=== PATIENT | male | born 1965 | race Caucasian/White ===

== ENCOUNTER 2024-05-02 19:54 | Inpatient (IN) | payer BC, SELFPAY ==
[2024-05-02 19:55] VITALS: BP 168/112; PULSE 130; RESP 16; TEMP 37.1; O2SAT 95; BMI 35.2
--- NOTE | 2024-05-02 20:12 | EDS_ITS ---
HPI History of Present Illness Chief Complaint: ETOH Intox PFSH PFSH Medical History GI bleed Alcohol abuse Home Medications ?Medication ?Instructions ?Recorded ?Last Taken ?Type ferrous sulfate 325 mg (65 mg 325 mg PO BID iron 05/02/24 Unknown History iron) tablet (Iron (ferrous sulfate)) Allergy/AdvReac Type Severity Reaction Status Date / Time No Known Allergies Allergy Verified 05/02/24 19:55 Social History Smoking Status: Never smoker EXAM Physical Exam Const Vital Signs: 05/02/24 19:55 05/02/24 21:55 Temperature 98.7 F Temperature Source Oral Pulse Rate 130 H 103 H Respiratory Rate 16 20 H Blood Pressure 168/112 H 149/95 H Blood Pressure Mean 130 113 Pulse Ox 95 97 Oxygen Delivery Method Room Air Room Air MDM MDM MDM Narrative Medical decision making narrative: HISTORY OF PRESENT ILLNESS: 59-year-old male presents requesting alcohol detoxification. Notes he drinks daily. Also uses marijuana. Last drink was at 3 PM. Notes he drinks approximately 1/5 of vodka daily. Illness for several years. Denies vomiting, abdominal pain, bloody stools. REVIEW OF SYSTEMS: Pertinent positives: Shaky Pertinent negatives: Abdominal pain, vomiting, headache PHYSICAL EXAM: Nursing triage notes reviewed, Vital signs reviewed Constitutional: please see mdm HENT: MMM Eyes: Pupils equal round and reactive to light, Extraocular muscles intact Neck: No stridor, no JVD, full neck ROM Lungs: Clear to auscultation, No wheezing or rales. No increased work of breathing, no conversational dyspnea, no accessory muscle use, no nasal flaring. No respiratory distress noted Heart: Regular rate and rhythm, No murmurs, No rubs and No gallops, 2+ distal pulses (radial, femoral, posterior tibial) in all extremities Abdomen: Soft, there is no tenderness, rigidity, rebound or guarding, no obvious peritoneal signs, no palpable pulsatile abdominal masses, no auscultated abdominal bruit : No CVAT Extremities: No edema Neuro: No new focal neurological deficits, cranial nerves II through XII intact, 5/5 strength in all present extremities. Intact sensation to light touch in all present extremities, 2+ reflexes bilateral patella tendons. Skin: No rash or lesions noted MEDICAL DECISION MAKING: Chief Complaint: Alcohol withdrawal External records reviewed: No recent ED visits Factors affecting care: History of alcohol abuse Social determinants of health: Alcohol abuse History obtained from others: Patient's friend Consults: internal medicine MDM Narrative: The patient was initially tachycardic rate 130, hypertensive with a blood pressure 168/112 Patient's vital sign abnormalities likely secondary to early alcohol withdrawal. Initially resuscitated patient with IV Ativan, 9 7.2 mg oral phenobarbital ALL IMAGES (IF OBTAINED) HAVE BEEN PERSONALLY REVIEWED AND INTERPRETED BY MYSELF. CBC without leukocytosis, severe anemia, no thrombocytopenia. BMP without evidence of significant electrolyte abnormalities, no anion gap, no acute kidney injury. Lipase is wnl indicating no pancreatic inflammation. Urine drug screen was positive for cannabinoids Serum alcohol grossly elevated consistent with history of alcohol abuse The patient was medically clear for detoxification admission Upon reevaluation vital signs improved blood pressure 144/85, heart rate was 95. Patient appropriate for floor admit. Discussed with hospitalist accepted the patient's case. The patient and/or family, caregivers express understanding. The patient and/or family, caregivers agrees with the plan. Shared decision making: I will have a discussion with the patient and or visitors regarding risk/benefits of further testing or admission. They will be made aware of of the risk/benefits inherent in this decision they will be given the opportunity to voice understanding. Total critical care time today provided was at least 0 minutes. This excludes separately billable procedures. Critical care time (if documented) is secondary to the patient having high probability of clinically significant/life threatening deterioration in the patient's condition which required my urgent intervention. Impression: 1. Hypertension 2. Tachycardic 3. History of alcohol abuse 4. Encounter for alcohol detoxification admission Dispo: Admit to [facility] This note was generated with [employer] dictation software. It may contain incorrect words, spelling, and punctuation that were not noted in review of the chart prior to signing. Lab Data Labs: Laboratory Results - last 24 hr 05/02/24 05/02/24 20:50 22:10 WBC 5.4 RBC 4.87 Hgb 15.3 Hct 45.1 MCV 92.6 MCH 31.4 MCHC 33.9 RDW Std Deviation 44.2 H RDW Coeff of Anca 13.0 Plt Count 229 MPV 8.8 Immature Gran % (Auto) 0.200 Neut % (Auto) 46.2 L Lymph % (Auto) 44.9 H [place] % (Auto) 7.7 Eos % (Auto) 0.4 Baso % (Auto) 0.6 Absolute Neuts (auto) 2.5 Absolute Lymphs (auto) 2.44 Nucleated RBC % 0 Sodium 143 Potassium 3.6 Chloride 109 H Carbon Dioxide 26.0 Anion Gap 8 BUN 12 Creatinine 0.94 Estim Creat Clear Calc 109.41 Est GFR (MDRD) Af Amer 104 Est GFR (MDRD) Non-Af 86 BUN/Creatinine Ratio 12.7 Glucose 111 H Calcium 9.5 Lipase 34 Urine Opiates Screen NEGATIVE Urine Methadone Screen NEGATIVE Ur Barbiturates Screen NEGATIVE Ur Phencyclidine Scrn NEGATIVE Ur Amphetamines Screen NEGATIVE MDMA (Ecstasy) Screen NEGATIVE U Benzodiazepines Scrn NEGATIVE Urine Cocaine Screen NEGATIVE U Cannabinoids Screen POSITIVE H Ur Drug Screen Comment Ethyl Alcohol 302.0 H* Discharge Plan Disposition Disposition: Acute Care Hospital [facility] Discharge Date/Time: 05/02/24 23:09
[2024-05-02] MEDS: Phenobarbital 32.4 MG Tablet 97.2 MG PO (20:43)
[2024-05-02] MEDS: LORazepam 2 MG/ML Syringe IV (20:48)
[2024-05-02 20:59] LABS: Absolute Lymphocyte Count 2.44 X10^3/uL (0.83-4.51); Absolute Neutrophil Count 2.5 X10^3/uL (2.0-7.7); Basophil# 0.03 X10^3/uL; Basophil% 0.6 % (0-1); Eosinophil# 0.02 X10^3/uL; Eosinophils% 0.4 % (0-5); Hematocrit 45.1 % (40-54); Hemoglobin 15.3 g/dL (13.0-16.5); Lymphocyte # 2.44 X10^3/ul (0.83-4.51); Lymphocyte % 44.9 % (19-41); Mean Corp Hgb Conc 33.9 g/dL (32-36); Mean Corpuscular Hgb 31.4 pg (27.0-32.0); Mean Corpuscular Volume 92.6 fL (80-94); Mean Platelet Vol. 8.8 fl (6.2-12.0); Monocyte# 0.42 X10^3/uL; Monocyte% 7.7 % (0-10); NRBC Flagged by Analyzer 0 % (0-5); Neutrophil # 2.52 X10^3/uL (2.7-7.7); Neutrophil % 46.2 % (47-70); Platelet Count 229 K/mm3 (150-450); RBC Distribution Width SD 44.2 fl (35.1-43.9); Red Blood Count 4.87 M/mm3 (4.6-6.2); White Blood Count 5.4 K/mm3 (4.4-11.0)
[2024-05-02 21:12] LABS: Anion Gap 8 (5-15); BUN 12 mg/dL (7-18); BUN/Creat Ratio 12.7 RATIO (10-20); Calcium,Total 9.5 mg/dL (8.5-10.1); Chloride 109 mmol/L (98-107); Creatinine, Serum 0.94 mg/dL (0.70-1.30); EST Glomerular Filtration Rate 86 mL/min (>60); Est Glom Filt Rate - Afr Amer 104 mL/min (>60); Estimated Creatinine Clearance 109.41 ml/min; Glucose 111 mg/dL (74-106); Lipase 34 U/L (13-75); Potassium 3.6 mmol/L (3.5-5.1); Sodium Level 143 mmol/L (136-145)
[2024-05-02 21:55] VITALS: BP 149/95; PULSE 103; RESP 20; O2SAT 97
--- NOTE | 2024-05-02 22:36 | PCM.HP.STD ---
[facility] - General General Date of Admission: 05/02/24 Date of Service: 05/02/24 Chief Complaint: EtOH Withdrawal. HPI Narrative GABRIEL JOHNSON, is a 59 M with a past medical history of obesity; with BMI of 35.3 this admission, ROB, cannabis abuse and chronic EtOH abuse with patient routinely drinking 1/5 of vodka daily for several years remote history of previous admission to inpatient alcohol rehab for 28-day stay at [facility] (~2009)who presents to [facility] ER complaining of signs and symptoms of alcohol withdrawal. Mr. Johnson reports his symptoms began shortly after 3 PM earlier today which is the time that he took his last drink of alcohol. He immediately noted generalized tremors and shakiness similar to his previous episode of EtOH withdrawal. He denies associated fever, chills, abdominal pain, bloody stools or shortness of breath but he does admit to nausea and basically continuously drinking for the last ~18 months just to avoid withdrawal. In the ER patient was noted to be initially tachycardic at ~130 bpm and hypertensive with a blood pressure of 168/112 mmHg with shakiness, anxiety and nausea consistent with Acute EtOH Withdrawal in spite of a SARA of 302 mg/dL present on admission with patient initially treated with IV Ativan, oral phenobarbital and volume resuscitate with good result. He was then admitted to the general medical floor for ongoing care for stay that is expected to extend beyond 2 midnights. [facility] Medical History GI bleed Alcohol abuse Home Medications ?Medication ?Instructions ?Recorded ?Last Taken ?Type ferrous sulfate 325 mg (65 mg 325 mg PO BID iron 05/02/24 Unknown History iron) tablet (Iron (ferrous sulfate)) Allergy/AdvReac Type Severity Reaction Status Date / Time No Known Allergies Allergy Verified 05/02/24 19:55 Social History Smoking Status: Never smoker ROS ROS Narrative Review of Systems: Constitutional: Patient denies fever or chills. Eyes: Patient denies changes in vision or discharge from eyes. ENT: Patient denies runny nose, sore throat or ear pain. Resp: Patient denies SOB or cough. CV: Patient denies chest pain, palpitations or heart racing. GI: Patient admits to nausea but he denies denies abdominal pain, vomiting, diarrhea or constipation. : Patient denies dysuria or hematuria. MSK: Patient denies arthralgias and myalgias. Skin: Patient denies rash, abscess or jaundice. Psych: Patient admits to anxiety associated with EtOH withdrawal but he denies SI or HI. Neuro: Patient admits to generalized shakiness but he denies headache, paresthesias or focal neurologic deficits. Allergy: Patient denies lip swelling, tongue swelling or urticaria. Hematology: Patient denies easy bleeding or easy bruisability. Endocrinology: Patient denies polyuria, polydipsia and polyphagia. 14 point ROS otherwise negative except for positives noted above in HPI. Vital Signs Vital Signs Vital Signs: 05/02/24 19:55 05/02/24 21:55 Temperature 98.7 F Temperature Source Oral Pulse Rate 130 H 103 H Respiratory Rate 16 20 H Blood Pressure 168/112 H 149/95 H Blood Pressure Mean 130 113 Pulse Ox 95 97 Oxygen Delivery Method Room Air Room Air Weight Weight: 260 lb Body Mass Index (BMI) 35.2 Physical Exam Const alert and oriented x3 Constitutional Narrative: Obese with mild distress and shakiness noted. General Appearance: cooperative HEENT normocephalic, head/scalp atraumatic, hearing grossly normal bilaterally and moist oral mucous membranes Eyes PERRL and EOMs intact bilaterally Neck no lymphadenopathy and supple Resp normal respiratory effort, no retractions, no use of accessory muscles and clear to auscultation bilaterally Cardio regular rate and regular rhythm GI normal to inspection, nondistended, normoactive bowel sounds, soft to palpation, non-tender and non-distended GI Narrative: Obese. Extremity normal to inspection, full ROM and no clubbing, cyanosis or edema Skin Skin Narrative: Patient denies rash, abscess or jaundice. Neuro oriented x3, CN's II-XII intact bilaterally, moves all extremities and no focal motor deficits Sensorium / Orientation: awake, alert, oriented to person, oriented to place and oriented to time Speech: speech normal Psych Mood & Affect: anxious Results Medical Records Data Attestation: I reviewed the patient's medical records Lab / Micro Data Attestation: I reviewed the patient's lab results. 05/02/24 20:50 05/02/24 20:50 Labs: Laboratory Results - last 24 hr 05/02/24 20:50: WBC 5.4, RBC 4.87, Hgb 15.3, Hct 45.1, MCV 92.6, MCH 31.4, MCHC 33.9, RDW Std Deviation 44.2 H, RDW Coeff of Anca 13.0, Plt Count 229, MPV 8.8, Immature Gran % (Auto) 0.200, Neut % (Auto) 46.2 L, Lymph % (Auto) 44.9 H, [place] % (Auto) 7.7, Eos % (Auto) 0.4, Baso % (Auto) 0.6, Absolute Neuts (auto) 2.5, Absolute Lymphs (auto) 2.44, Nucleated RBC % 0, Sodium 143, Potassium 3.6, Chloride 109 H, Carbon Dioxide 26.0, Anion Gap 8, BUN 12, Creatinine 0.94, Estim Creat Clear Calc 109.41, Est GFR (MDRD) Af Amer 104, Est GFR (MDRD) Non-Af 86, BUN/Creatinine Ratio 12.7, Glucose 111 H, Calcium 9.5, Lipase 34, Ethyl Alcohol 302.0 H* 05/02/24 22:10: Ur Drug Screen Comment Assessment & Plan Assessment/Plan (1) Alcohol withdrawal: QUALIFIERS: Complication of substance-induced condition: uncomplicated Qualified Code(s): F10.930 - Alcohol use, unspecified with withdrawal, uncomplicated (2) Chronic alcohol abuse: (3) Cannabis abuse: (4) Obesity (BMI 30-39.9): (5) History of iron deficiency anemia: PLAN: Plan 1. Acute EtOH Withdrawal in the setting of Chronic EtOH Abuse for several years with a remote history of admission for EtOH Withdrawal ~15 years ago - Admit to general medical floor for treatment under the EtOH Withdrawal protocol primarily consisting of phenobarbital tapers. EtOH Cessation will be strongly encouraged. Finally, we will consult Case Management to see this patient on-rounds in the AM to help him formulate a plan to maintain sobriety with help appreciated in advance. 2. Cannabis Abuse complicating #1 with UDS positive for cannabinoids - Cannabis Cessation will be strongly encouraged. 3. Obesity; with BMI of 35.3 this admission compounding #1 & #2 - Weight loss will be recommended. Check TSH. 4. ROB - Stable with hemoglobin of 15.3 g/dL present on admission. Continue iron supplement as previous. 5. DVT prophylaxis - Lovenox 40 mg sq daily. Total time: Approximately (but not less than) 55 minutes.
[2024-05-02 22:38] LABS: Amphetamine Urine VISTA NEGATIVE (<1000 ng/mL); Barbiturate Urine VISTA NEGATIVE (< 200 ng/mL); Benzodiazepine Urine VISTA NEGATIVE (< 200 ng/mL); Cocaine Urine VISTA NEGATIVE (< 300 ng/mL); Ecstacy Urine VISTA NEGATIVE (< 500 ng/mL); Methadone Urine VISTA NEGATIVE (< 300 ng/mL); PCP Urine VISTA NEGATIVE (< 25 ng/mL); THC Urine VISTA POSITIVE (< 50 ng/mL); Vista UDS pH Range 5
[2024-05-02 22:41] VITALS: BP 122/66; PULSE 95; RESP 17; TEMP 36.8; O2SAT 99
[2024-05-02 23:16] VITALS: BMI 33.8
[2024-05-02 23:20] VITALS: BP 144/85; PULSE 95; RESP 18; TEMP 36.8; O2SAT 94
[2024-05-02] MEDS: 0.9% Normal Saline (1000mL) 1,000 ML 125 ML IV (23:28)
[2024-05-02] MEDS: Phenobarbital 32.4 MG Tablet 64.8 MG PO (23:45)
[2024-05-02] MEDS: traZODone 100 MG Tablet PO (23:52)
[2024-05-02] MEDS: Gabapentin 300 MG Capsule PO (23:52)
[2024-05-03] VITALS (7 sets, daily range): BP systolic 132–158; BP diastolic 78–91; PULSE 71–93; RESP 14–18; TEMP 36.4–37.1; O2SAT 95–99; BMI 33.7
[2024-05-03] MEDS: Phenobarbital 32.4 MG Tablet 64.8 MG PO ×6 (04:11→23:50)
[2024-05-03] MEDS: hydrOXYzine PAM 25 MG Capsule 50 MG PO ×2 (04:11→08:41)
--- NOTE | 2024-05-03 06:48 | PN.HOSP_ITS ---
Subjective Subjective Patient since admission notes he feels mildly worsened with significant tremors still making even difficult enough to eat. He does state he has an appetite and denies any nausea or emesis or abdominal cramping. Discussed plan of care with addition of CIWA with Ativan to which he is amenable. He also notes he did not sleep well but from discussion with nursing staff he was noted to have slept through the evening upon checks. Patient denies fevers, chills, nausea, emesis, abdominal pain, chest pain or dyspnea. Objective Data Objective Data Vital Signs: Vital Signs Temp Pulse Resp BP Pulse Ox O2 Del Method 97.6 F L 92 18 132/82 H 95 Room Air 05/03/24 04:07 05/03/24 04:07 05/03/24 04:07 05/03/24 04:07 05/03/24 04:07 05/03/24 04:07 Oxygen Delivery Method Room Air Weight: 249 lb 12.54 oz Body Mass Index (BMI) 33.8 Intake & Output: Intake and Output for Last 24 Hours 05/01/24 05/02/24 05/03/24 23:59 23:59 23:59 Intake Total 400 / 400 Balance 400 / 400 Lab / Micro Data 05/03/24 07:05 05/03/24 07:05 Labs: Laboratory Results - last 24 hr 05/02/24 20:50: WBC 5.4, RBC 4.87, Hgb 15.3, Hct 45.1, MCV 92.6, MCH 31.4, MCHC 33.9, RDW Std Deviation 44.2 H, RDW Coeff of Anca 13.0, Plt Count 229, MPV 8.8, Immature Gran % (Auto) 0.200, Neut % (Auto) 46.2 L, Lymph % (Auto) 44.9 H, [place] % (Auto) 7.7, Eos % (Auto) 0.4, Baso % (Auto) 0.6, Absolute Neuts (auto) 2.5, Absolute Lymphs (auto) 2.44, Nucleated RBC % 0, Sodium 143, Potassium 3.6, C hloride 109 H, Carbon Dioxide 26.0, Anion Gap 8, BUN 12, Creatinine 0.94, Estim Creat Clear Calc 109.41, Est GFR (MDRD) Af Amer 104, Est GFR (MDRD) Non-Af 86, BUN/Creatinine Ratio 12.7, Glucose 111 H, Calcium 9.5, Lipase 34, Ethyl Alcohol 302.0 H* 05/02/24 22:10: Urine Opiates Screen NEGATIVE, Urine Methadone Screen NEGATIVE, Ur Barbiturates Screen NEGATIVE, Ur Phencyclidine Scrn NEGATIVE, Ur Amphetamines Screen NEGATIVE, MDMA (Ecstasy) Screen NEGATIVE, U Benzodiazepines Scrn NEGATIVE, Urine Cocaine Screen NEGATIVE, U Cannabinoids Screen POSITIVE H, Ur Drug Screen Comment Physical Exam Narrative Physical Examination: General: Awake, alert, oriented x 3 and cooperative, laying in the MedSurg bed, evident tremors with intention movements. Skin: Normal color, normal turgor, no icterus, no cyanosis except occasional stage ecchymoses, abrasions HEENT: AT/NC, EOMI, PERRLA, MMM. Lungs: Mildly diminished, greater bases, appropriate effort, no rales, ronchi or wheezing. Heart: Regular rate and rhythm; no gallop, rub audible. Abdomen: Soft, obese, NTTP, ND, mildly hyperactive BS. Extremities: No cyanosis, clubbing, or edema. Neurological: Patient awake, alert, oriented as noted, cognitive function intact; pupils equally reactive to light and accommodation, cranial nerves grossly normal, moving all 4 extremities, no focal deficits, strength moderately global decrease, evident tremors especially with intention. Psychiatric: Affect appears fatigued appearing, no acute evidence of depressive or anxiety feelings. Assessment & Plan Assessment/Plan (1) Alcohol withdrawal: QUALIFIERS: Complication of substance-induced condition: u ncomplicated Qualified Code(s): F10.930 - Alcohol use, unspecified with withdrawal, uncomplicated PLAN: Plan The patient is a 59 y/o M w/ PMHx: Obesity, Chronic anemia/Fe deficiency anemia, Chronic cannabis use, Hx GI bleed, EtOH abuse (1/5th vodka daily) who presents to the [facility] ED on 05/02/24 with onset of alcohol withdrawal with last intake at 3 PM on day of presentation with onset of tremors, shakiness with requested assistance for alcohol withdrawal treatment noting interest in sobriety. #1. Acute EtOH Withdrawal with mild suspected likely chronic transaminitis: Admitted medical surgical floor, given interest in sobriety, initiated and continued on protocol with taper course of Phenobarbital, as needed gabapentin, Catapres, Bentyl, Vistaril, IV fluids, IV antiemetics, Tylenol as needed for pain. Will consult Case management for assistance for transition to next level of rehabilitation care. Mag, phos normal range. Adding CIWA protocol concurrently with Ativan given ongoing persistent symptoms. 05/03/2024 AST/ALT 74/104 otherwise hepatic profile not marked, suspect likely chronic, given history. #2. Hypokalemia: 05/03/2024 K+ 3.4, magnesium level was appropriate, supplementation given, repeat level in AM. #2. Chronic anemia/iron deficiency anemia: Admission globin 15.3, MCV 92.6, no comparison, patient reported history, encourage continued follow-up outpatient for further evaluation workup. 05/03/2024 hemoglobin 13.1, MCV 93.9; however, he was hydrated upon admission the suspect this is more likely his baseline. #3. GERD with history of GI bleed: Not on any chronic regimen, will have as needed Mylanta, hemoglobin stable and appropriate, strongly encourage sobriety. #4. Chronic cannabis usage: Encourage clean status especially given substance abuse history and patterns. #5. Obesity: Weight loss and lifestyle changes encouraged. #6. DVT prophylaxis: Low risk for type admission. Charges/Coding Visit Charges Inpatient E&M: 37203 Subs Hosp L2
[2024-05-03] MEDS: 0.9% Normal Saline (1000mL) 1,000 ML 125 ML IV (06:53)
[2024-05-03 08:38] LABS: Absolute Lymphocyte Count 1.26 X10^3/uL (0.83-4.51); Absolute Neutrophil Count 1.9 X10^3/uL (2.0-7.7); Basophil# 0.03 X10^3/uL; Basophil% 0.8 % (0-1); Eosinophil# 0.03 X10^3/uL; Eosinophils% 0.8 % (0-5); Hematocrit 39.8 % (40-54); Hemoglobin 13.1 g/dL (13.0-16.5); Lymphocyte # 1.26 X10^3/ul (0.83-4.51); Lymphocyte % 35.6 % (19-41); Mean Corp Hgb Conc 32.9 g/dL (32-36); Mean Corpuscular Hgb 30.9 pg (27.0-32.0); Mean Corpuscular Volume 93.9 fL (80-94); Monocyte# 0.33 X10^3/uL; Monocyte% 9.3 % (0-10); NRBC Flagged by Analyzer 0 % (0-5); Neutrophil # 1.88 X10^3/uL (2.7-7.7); Neutrophil % 53.2 % (47-70); Platelet Count 191 K/mm3 (150-450); RBC Distribution Width SD 44.6 fl (35.1-43.9); Red Blood Count 4.24 M/mm3 (4.6-6.2); White Blood Count 3.5 K/mm3 (4.4-11.0)
[2024-05-03] MEDS: Folic Acid 1 MG Tablet PO (08:41)
[2024-05-03] MEDS: Ferrous Sulfate 325 MG Tablet PO ×2 (08:41→16:35)
[2024-05-03] MEDS: Enoxaparin 40 MG/0.4 ML Syringe SC (08:41)
[2024-05-03] MEDS: Thiamine Hydrochloride 100 MG Tablet PO (08:41)
[2024-05-03 09:12] LABS: ALB/GLOB Ratio 1.1 RATIO (0.9-2.4); AST(SGOT) 74 U/L (15-37); Alanine Aminotransfer ALT/SGPT 104 U/L (16-61); Albumin, Serum 3.4 g/dL (3.2-5.0); Alkaline Phosphatase 62 U/L (45-117); Anion Gap 11 (5-15); BUN 13 mg/dL (7-18); BUN/Creat Ratio 18.1 RATIO (10-20); Bilirubin, Direct 0.18 mg/dL (0.00-0.30); Calcium,Total 8.4 mg/dL (8.5-10.1); Chloride 106 mmol/L (98-107); Creatinine, Serum 0.72 mg/dL (0.70-1.30); EST Glomerular Filtration Rate 118 mL/min (>60); Est Glom Filt Rate - Afr Amer 143 mL/min (>60); Globulin 3.2 g/dL (2.2-4.2); Glucose 88 mg/dL (74-106); Magnesium 1.9 mg/dL (1.6-2.6); Potassium 3.4 mmol/L (3.5-5.1); Protein, Total 6.6 g/dL (6.4-8.2); Sodium Level 141 mmol/L (136-145)
[2024-05-03] MEDS: Ibuprofen 200 MG Tablet PO (10:55)
[2024-05-03] MEDS: Potassium Chloride Oral Tablet 20 MEQ 40 MEQ PO (10:55)
[2024-05-03] MEDS: Gabapentin 300 MG Capsule PO ×2 (10:55→23:50)
[2024-05-03] MEDS: traZODone 100 MG Tablet PO (23:50)
[2024-05-04 04:17] VITALS: BP 155/98; PULSE 75; RESP 16; TEMP 36.7; O2SAT 98
[2024-05-04] MEDS: Phenobarbital 32.4 MG Tablet 64.8 MG PO ×6 (04:18→23:46)
[2024-05-04] MEDS: hydrOXYzine PAM 25 MG Capsule 50 MG PO (04:19)
[2024-05-04 05:13] VITALS: BMI 33.7
--- NOTE | 2024-05-04 06:31 | PCM.PN.HOSP ---
Reason for Visit Reason for Visit: Diagnoses Obesity, unspecified (05/02/24) Alcohol abuse, uncomplicated (05/02/24) Alcohol use, unspecified with withdrawal, uncomplicated (05/02/24) Cannabis abuse, uncomplicated (05/02/24) Personal history of diseases of the blood and blood-forming organs and certain disorders involving the immune mechanism (05/02/24) Subjective Subjective Patient with no acute events overnight per self and per nursing report. He notes he is feeling significantly improved than day prior and has had near abatement of his withdrawal symptoms. He states he has an extremely good support system and is very involved in AA with plans for continuing this upon discharge. He notes his strong preference is for discharge 05/05/2024 despite the fact that his phenobarb taper does not end until early a.m. 05/07/2024. Patient denies fevers, chills, nausea, emesis, abdominal pain, chest pain or dyspnea. Objective Data Objective Data Vital Signs: Vital Signs Temp Pulse Resp BP Pulse Ox O2 Del Method 98.0 F 75 16 155/98 H 98 Room Air 05/04/24 04:17 05/04/24 04:17 05/04/24 04:17 05/04/24 04:17 05/04/24 04:17 05/04/24 04:17 Oxygen Delivery Method Room Air Weight: 249 lb 5.485 oz Body Mass Index (BMI) 33.7 Intake & Output: Intake and Output for Last 24 Hours 05/02/24 05/03/24 05/04/24 23:59 23:59 23:59 Intake Total 400 / 400 3827.08 / 4377.08 1400 / 1400 Balance 400 / 400 3827.08 / 4377.08 1400 / 1400 Lab / Micro Data 05/03/24 07:05 05/03/24 07:05 Labs: Laboratory Results - last 24 hr 05/03/24 07:05: WBC 3.5 L, RBC 4.24 L, Hgb 13.1, Hct 39.8 L, MCV 93.9, MCH 30.9, MCHC 32.9, RDW Std Deviation 44.6 H, RDW Coeff of Anca 13.0, Plt Count 191, MPV 9.0, Immature Gran % (Auto) 0.300, Neut % (Auto) 53.2, Lymph % (Auto) 35.6, [place] % (Auto) 9.3, Eos % (Auto) 0.8, Baso % (Auto) 0.8, Absolute Neuts (auto) 1.9 L, Absolute Lymphs (auto) 1.26, Nucleated RBC % 0, Sodium 141, Potassium 3.4 L, Chloride 106, Carbon Dioxide 23.0, Anion Gap 11, BUN 13, Creatinine 0.72, Estim Creat Clear Calc 139.90, Est GFR (MDRD) Af Amer 143, Est GFR (MDRD) Non-Af 118, BUN/Creatinine Ratio 18.1, Glucose 88, Calcium 8.4 L, Phosphorus 3.0, Magnesium 1.9, Total Bilirubin 0.60, Direct Bilirubin 0.18, AST 74 H, ALT 104 H, Alkaline Phosphatase 62, Total Protein 6.6, Albumin 3.4, Globulin 3.2, Albumin/Globulin Ratio 1.1, TSH 2.170 Physical Exam Narrative Physical Examination: General: Awake, alert, oriented x 3 and cooperative, seated upright in the [facility] bedside chair, no tremors, laughing with staff, well-appearing. Skin: Normal color, normal turgor, no icterus, no cyanosis except occasional stage ecchymoses, abrasions. HEENT: AT/NC, EOMI, PERRLA, MMM. Lungs: Mildly diminished, greater bases, appropriate effort, no rales, ronchi or wheezing. Heart: Regular rate and rhythm; no gallop, rub audible. Abdomen: Soft, obese, NTTP, ND, normal BS. Extremities: No cyanosis, clubbing, or edema. Neurological: Patient awake, alert, oriented as noted, cognitive function intact; pupils equally reactive to light and accommodation, cranial nerves grossly normal, moving all 4 extremities, no focal deficits, strength significantly improved, mildly globally decreased, no evident tremors currently, significantly improved withdrawal symptoms. Psychiatric: Affect appears normal, interactive with staff, no acute evidence of depressive or anxiety feelings. Assessment & Plan Assessment/Plan (1) Alcohol withdrawal: QUALIFIERS: Complication of substance-induced condition: uncomplicated Qualified Code(s): F10.930 - Alcohol use, unspecified with withdrawal, uncomplicated PLAN: Plan The patient is a 59 y/o M w/ PMHx: Obesity, Chronic anemia/Fe deficiency anemia, Chronic cannabis use, Hx GI bleed, EtOH abuse (1/ vodka daily) who presents to the [facility] ED on 05/02/24 with onset of alcohol withdrawal with last intake at 3 PM on day of presentation with onset of tremors, shakiness with requested assistance for alcohol withdrawal treatment noting interest in sobriety. #1. Acute EtOH Withdrawal with mild suspected likely chronic transaminitis: Admitted medical surgical floor, given interest in sobriety, initiated and continued on protocol with taper course of Phenobarbital, as needed gabapentin, Catapres, Bentyl, Vistaril, IV fluids, IV antiemetics, Tylenol as needed for pain. Will consult Case management for assistance for transition to next level of rehabilitation care. Mag, phos normal range. Adding CIWA protocol concurrently with Ativan given ongoing persistent symptoms. 05/03/2024 AST/ALT 74/104 otherwise hepatic profile not marked, suspect likely chronic, given history. 05/04/2024 patient reporting eagerness for possible discharge 05/05/2024 as he has a strong support system and would follow immediately with his AA sponsor at discharge. #2. Hypokalemia: 05/03/2024 K+ 3.4, magnesium level appropriate, supplementation given. #2. Chronic anemia/iron deficiency anemia: Admission globin 15.3, MCV 92.6, no comparison, patient reported history, encourage continued follow-up outpatient for further evaluation workup. 05/03/2024 hemoglobin 13.1, MCV 93.9; however, he was hydrated upon admission the suspect this is more likely his baseline. #3. GERD with history of GI bleed: Not on any chronic regimen, will have as needed Mylanta, hemoglobin stable and appropriate, strongly encourage sobriety. #4. Chronic cannabis usage: Encourage clean status especially given substance abuse history and patterns. #5. Obesity: Weight loss and lifestyle changes encouraged. #6. DVT prophylaxis: Low risk for type admission. Charges/Coding Visit Charges Inpatient E&M: 88056 Subs Hosp L2
[2024-05-04] MEDS: Folic Acid 1 MG Tablet PO (07:50)
[2024-05-04] MEDS: Ferrous Sulfate 325 MG Tablet PO ×2 (07:51→17:24)
[2024-05-04] MEDS: Thiamine Hydrochloride 100 MG Tablet PO (07:51)
[2024-05-04 10:00] VITALS: BP 142/96; PULSE 76; RESP 17; O2SAT 93
[2024-05-04] MEDS: Enoxaparin 40 MG/0.4 ML Syringe SC (10:40)
--- NOTE | 2024-05-04 12:29 | ADDICTION ---
This life underwriter met with PT in his room to complete ASAM, MSE, AUDIT assessments and to plan for discharge. PT A+Ox4 and reported feeling much better than yesterday. All assessments completed. PT to engage back into AA with upon d/c from [facility] and is planning on making changes environmentally and seeking a mental health counselor.
[2024-05-04 14:26] VITALS: BP 155/88; PULSE 84; RESP 16; TEMP 36.7; O2SAT 94
[2024-05-04 18:39] VITALS: BP 141/94; PULSE 91; RESP 16; TEMP 36.6; O2SAT 95
[2024-05-04 19:31] VITALS: BP 144/97; PULSE 87; RESP 16; TEMP 36.8; O2SAT 100
[2024-05-04 23:45] VITALS: BP 148/101; PULSE 82; RESP 14; TEMP 36.6; O2SAT 97
[2024-05-04] MEDS: traZODone 100 MG Tablet PO (23:46)
[2024-05-04] MEDS: Gabapentin 300 MG Capsule PO (23:47)
[2024-05-05 03:33] VITALS: BMI 33.7
[2024-05-05 04:13] VITALS: BP 142/97; PULSE 75; RESP 16; TEMP 36.4; O2SAT 98
[2024-05-05] MEDS: Phenobarbital 32.4 MG Tablet 64.8 MG PO ×2 (04:14→08:21)
[2024-05-05 08:19] VITALS: BP 138/91; PULSE 95; RESP 18; TEMP 36.9; O2SAT 98
[2024-05-05] MEDS: Ferrous Sulfate 325 MG Tablet PO (08:21)
[2024-05-05] MEDS: Folic Acid 1 MG Tablet PO (08:22)
[2024-05-05] MEDS: Thiamine Hydrochloride 100 MG Tablet PO (08:22)
[2024-05-05] MEDS: Acetaminophen 500 MG Tablet PO (09:05)
--- NOTE | 2024-05-05 10:06 | DCINST_ITS ---
Discharge Instructions Diet Discharge Diet: No restrictions DC O2, CPAP, BIPAP needs Home O2 Discharge instructions: No Dressing / Incision Discharge Activity: Return to Normal Activity Dressing / Incision Call your doctor if you observe: Fever of 101 or Higher, Shortness of breath, Dizziness, Fainting spells, Swelling in the ankles, Chest pain and Increased palpitations (irregular heartbeat) Follow Up Care Test Results: Test results from this visit will be discussed in further detail at your follow- up appointment, if applicable. Discharge Plan Admission Admit Date/Time: 05/02/24 22:38 Attending Provider: Ian Dugan Primary Care Provider: Allan Rowell Consulting Providers: Jamie Farnsworth; Sailaja Christina Discharge Orders/Prescriptions Prescriptions: Continued ferrous sulfate [Iron (ferrous sulfate)] 325 mg (65 mg iron) tablet 325 mg PO BID Referrals / Follow Up: Allan Rowell MD [Primary Care Provider] - Disposition Disposition (needs filled in before D/C Order can be placed): Home, Self Care
--- NOTE | 2024-05-05 10:08 | DS.PCM_ITS ---
Providers Date of Admission: 05/02/24 Primary Care Physician: Dr. Allan Rowell MD Reason For Visit: ETOH WITHDRAWL Diagnosis Discharge Diagnosis (1) Alcohol withdrawal: Status: Acute Code(s): F10.939 - Alcohol use, unspecified with withdrawal, unspecified Qualifiers: Complication of substance-induced condition: uncomplicated Qualified Code(s): F10.930 - Alcohol use, unspecified with withdrawal, uncomplicated Medications at Discharge Home Medications ferrous sulfate 325 mg (65 mg iron) tablet (Iron (ferrous sulfate)) 325 mg PO BID iron 05/02/24 Hospital Course Operations None Procedures None Summary of Care Provided Minutes Spent on Discharge: 34 Hospital Course: Per HPI: GABRIEL FRITZ, is a 59 M with a past medical history of obesity; with BMI of 35.3 this admission, ROB, cannabis abuse and chronic EtOH abuse with patient routinely drinking 1/5 of vodka daily for several years remote history of previous admission to inpatient alcohol rehab for 28-day stay at [facility] (~2009)who presents to [facility] ER complaining of signs and symptoms of alcohol withdrawal. Mr. Fritz reports his symptoms began shortly after 3 PM earlier today which is the time that he took his last drink of alcohol. He immediately noted generalized tremors and shakiness similar to his previous episode of EtOH withdrawal. He denies associated fever, chills, abdominal pain, bloody stools or shortness of breath but he does admit to nausea and basically continuously drinking for the last ~18 months just to avoid withdrawal. In the ER patient was noted to be initially tachycardic at ~130 bpm and hypertensive with a blood pressure of 168/112 mmHg with shakiness, anxiety and nausea consistent with Acute EtOH Withdrawal in spite of a SARA of 302 mg/dL present on admission with patient initially treated with IV Ativan, oral phenobarbital and volume resuscitate with good result. He was then admitted to the general medical floor for ongoing care for stay that is expected to extend beyond 2 midnights. Hospital Course: 1. Alcohol withdrawal with chronic transaminitis?59-year-old male presented to the hospital requesting detox from alcohol. He has done multiple self detox at home he states but rarely comes to the hospital. He was placed on the alcohol withdrawal protocol which she has done very well with and his request to be discharged today. He plans to follow-up with [facility] as an outpatient as well as AA, his sponsor already knows that he is here in the hospital. He states that the reason why he continues to get back into drinking it because he thinks that he can handle it so he has 1 drink that and then worsens into alcoholism. I discussed with him the plan for discharge today he expressed understanding of his benefits going home and would like to go home today. I recommended he follow-up with [facility] as soon as possible. 2. Chronic iron deficiency anemia, GERD with a history of GI bleed, chronic cannabis use are all chronic medical conditions which complicate his care. Medications were continued where appropriate Physical Exam Narrative General: Alert, Oriented x3, Cooperative, No apparent distress HEENT: Atraumatic, PERRLA, EOMI, Normocephalic Oral: Moist Mucosa Neck: Supple, No JVD Lungs: Clear to auscultation, Normal air movement, No rhonchi, No wheeze, No rales Cardiovascular: Regular rate, Regular Rhythm, Normal S1, Normal S2, No murmurs Abdomen: Soft, Non Tender, Non-Distended, No Hepato-splenomegaly Extremities: No edema, Capillary Refill Less than 3 Seconds Skin: No rashes, No breakdown Musculoskeletal: No Tenderness to Palpation of Joints or Extremities Neurological: No focal neurological deficits, Motor Exam 5/5 strength throughout, Sensory exam intact to light touch and pain Psych/Mental Status: Normal Affect, Appropriate Weight / BMI Weight Weight: 249 lb 5.485 oz Body Mass Index (BMI) 33.7 ABG / Lab / Microbiology Data 05/03/24 07:05 05/03/24 07:05 D/C Instructions Discharge Diet: No restrictions Call your doctor if you observe: Fever of 101 or Higher, Shortness of breath, Dizziness, Fainting spells, Swelling in the ankles, Chest pain and Increased palpitations (irregular heartbeat) DC O2, CPAP, BIPAP Needs Home O2 Discharge instructions: No Meaningful Use Info Meaningful Use Meaningful Use Diagnoses (Choose all that apply): None applicable Ischemic Stroke Statin Dosing Therapy Reference: STATIN DOSE THERAPY REFERENCE: * Patients > 75 years receive moderate or high dose statin therapy. * Patients 75 years or YOUNGER should receive HIGH intensity statin dose unless contraindicated. You will be required to document reason for non-treatment if statin daily dose does not meet guidelines. HIGH DOSE STATIN THERAPY DAILY Atorvastatin > than or = to 40 mg Rosuvastatin > than or = to 20 mg Amlodipine + Atorvastatin > than or = to 2.5/40 mg Ezetimibe + Simvastatin 10/80 mg Simvastatin 80mg Discharge Plan Admission Admit Date/Time: 05/02/24 22:38 Attending Provider: Ian Dugan Primary Care Provider: Allan Rowell Consulting Providers: Jamie Farnsworth; Sailaja Christina Discharge Orders/Prescriptions Prescriptions: Continued ferrous sulfate [Iron (ferrous sulfate)] 325 mg (65 mg iron) tablet 325 mg PO BID Referrals / Follow Up: Allan Rowell MD [Primary Care Provider] - Disposition Disposition (needs filled in before D/C Order can be placed): Home, Self Care Charges/Coding Visit Charges Inpatient E&M: [id number] Disch Hosp >30min
[2024-05-05 10:59] VITALS: BP 138/90; PULSE 93; RESP 18; TEMP 36.9; O2SAT 95
== END 2024-05-05 13:32 | disposition home or self-care (01) | DRG 897 ==
LOC: ED 21:27 → MS3 22:45
PROVIDERS: Admitting Provider Internal Medicine; Emergency Provider Emergency Medicine; PCP Family Medicine; Referring Provider Family Medicine; Visit Provider Family Medicine
DX: F10.139 Alcohol abuse with withdrawal, unspecified (principal); D50.9 Iron deficiency anemia, unspecified; F12.10 Cannabis abuse, uncomplicated; E66.9 Obesity, unspecified; E87.6 Hypokalemia; I10 Essential (primary) hypertension; K21.9 Gastro-esophageal reflux disease without esophagitis; Y90.8 Blood alcohol level of 240 mg/100 ml or more; Z68.35 Body mass index [BMI] 35.0-35.9, adult
CPT/HCPCS: 80048; 80053; 80307; 82077; 82248; 83690; 83735; 84100; 84443; 85025; 94668; 99284; A4216